=== PATIENT | female | born 1990 | race Two or more races ===

== ENCOUNTER 2016-10-28 05:30 | Emergency (ER) | payer MEDICAID ==
[~2016-10-28] VITALS: Ht 175.3 cm; Wt 68.0 kg
[~2016-10-28 05:30] MED LIST: NKM
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
[2016-10-28] MEDS ORDERED: LORazepam Inj 2mg/ml 1ml IV ONE (05:45)
[2016-10-28 06:00] VITALS: BP 105/72
[2016-10-28 07:16] LABS: APPEARANCE,URINE CLEAR; KETONES,URINE NEGATIVE (NEGATIVE); LEUKOCYTE ESTERASE ,URINE 1+ (NEGATIVE); NITRITE,URINE NEGATIVE (NEGATIVE); PH,URINE 5 (4.5-8.0); PROTEIN,URINE 1+ (NEGATIVE); UROBILINOGEN,URINE NORMAL MG/DL (0.0-1.0)
[2016-10-28 07:28] LABS: BACTERIA,URINE FEW /HPF; RBC,URINE 0-2 /HPF (0 - 2); SQUAMOUS EPITHELIAL CELL,UR FEW /LPF (NONE/OCC)
[2016-10-28 07:44] VITALS: BP 100/61
[2016-10-28 10:10] VITALS: BP 103/84
== END 2016-10-28 10:10 | disposition home or self-care (01) ==
LOC: EDBD 05:30 → EMR 06:00
DX: F19.10 Other psychoactive substance abuse, uncomplicated (principal); F41.0 Panic disorder [episodic paroxysmal anxiety]
CPT/HCPCS: 80300; 81003; 81025; 96360; 96374